=== PATIENT | female | born 1985 | race African-American/Black ===

== ENCOUNTER → 2018-03-06 | Day surgery (SDC) | payer OTHER ==
--- NOTE | 2018-02-26 12:38 | MH ---
cc: Sim Pemberton MD, Jesse S MD DATE OF ADMISSION: 03/06/2018 REASON FOR ADMISSION: Diagnostic cystoscopy. HISTORY OF PRESENT ILLNESS: The patient is a 32-year-old black female, 3, para 3, with a long history of bladder pain issues. She has had negative urine cultures, but does have some microscopic hematuria. She has used vaginal estrogen in the past with some relief and uses Macrodantin on a p.r.n. basis. She at this point wants to proceed with cystoscopy. PAST MEDICAL HISTORY: Negative for heart, lung, or liver disease; hypertension, diabetes or stroke. PAST SURGICAL HISTORY: Tubal ligation. OBSTETRICAL HISTORY: Three vaginal deliveries. GYNECOLOGICAL HISTORY: No STDs or abnormal Pap smears. Periods are once a month. MEDICATIONS: Vaginal estrogen cream every other night, nitrofurantoin p.r.n. ALLERGIES: NONE. FAMILY HISTORY: Noncontributory. SOCIAL HISTORY: Does not smoke, use alcohol or drugs. Has good social support. REVIEW OF SYSTEMS: As above. No chest pain, orthopnea or PND. No nausea, vomiting, fever or chills. No vaginal bleeding or discharge. PHYSICAL EXAMINATION: VITAL SIGNS: She is afebrile. Vital signs are stable. Blood pressure is 120/70, height 5 feet 3 inches, weight is 127, BMI is 22.5. GENERAL: The patient is alert and oriented, in no acute distress. No sign of cognitive dysfunction or depression. HEENT: Within normal limits. NECK: Supple. No JVD. CHEST: Clear. HEART: Regular rate and rhythm. ABDOMEN: Soft, nontender. No hepatosplenomegaly. No CVA tenderness. PELVIC: Exam will be detailed under anesthesia. EXTREMITIES: Normal. SKIN: No rashes. NEUROLOGIC: Nonfocal. No DVT signs. ASSESSMENT: The patient with bladder pain syndrome. PLAN: We have discussed options for management and treatment. At this point, we will proceed with cystoscopy and appropriate biopsies if need be. She is aware of the risks, benefits, and alternatives of the planned procedure including damage to surrounding organs, bleeding, infection, and possibility that pain may not be relieved. Anticipate outpatient procedure. We will use deep thrombosis prophylaxis with sequential compression device and antibiotic prophylaxis of Ancef 1 gram. MD JOSE Hendrickson/JESSICA , 12:20 PM , 12:37 PM
[~2018-03-06] VITALS: Ht 160 cm; Wt 58.5 kg
[~2018-03-06] MED LIST: ACETAMINOPHEN 1000 MG/100 ML 100 ML IV ONE; CHLORHEXIDINE GLUCONATE 2 % 1 PACK (2 CLOTHS) TOPICAL PRN; CYCL10TA PO; DEXAMETHASONE SOD PHOS 4 MG/ML VIAL IV ONE; DIFL150T PO; DO NOT ADM ANY ANTICOAGULANT DRUGS PRN; ESTR42.5V VAGINAL; KETOROLAC TROMETHAMINE 30 MG/ML (IVP) VIAL IV PUSH ONE; KETOROLAC TROMETHAMINE 30 MG/ML (IVP) VIAL IV PUSH PRN; LACTATED RINGER'S 1000 ML IV PRN; LIDOCAINE HCL 1% PF 5 ML SYRINGE OTHER ONE; MACR100C2 PO; METOPROLOL TARTRATE 25 MG TAB PO PRN; MIDAZOLAM HCL 2 MG/2 ML VIAL ONE; NITR50CA27 PO; ONDANSETRON HCL 4 MG/2 ML VIAL IV ONE; ONDANSETRON HCL 4 MG/2 ML VIAL IV PUSH PRN; ORTH0.35 PO; POVIDONE IODINE 5% (ANTISEPSIS KIT) 4 APPLICATIONS EACH NARE PRN; PROPOFOL 200 MG/20 ML AMP IV ONE; SODIUM CHLORID 0.9% 500 ML IV PRN; ceFAZolin 2 GM/DEX PREMIX 50 ML IV SCH; ePHEDrine/NS 25 MG/5 ML SYRINGE IV ONE; traMADol HCL 50 MG TAB PO PRN
--- NOTE | 2018-03-06 10:59 | MP ---
cc: Sim Pemberton MD DATE OF OPERATION: 03/06/2018 PREOPERATIVE DIAGNOSES: Interstitial cystitis, bladder pain, code N30.1. PROCEDURE PERFORMED: Cystoscopy with hydrodistention, code 30377. POSTOPERATIVE DIAGNOSES. Interstitial cystitis, bladder pain, code N30.1. SURGEON: Sim Pemberton MD. ANESTHESIA: Laryngeal mask. BLOOD LOSS: None. ANESTHETIC BLADDER CAPACITY: 500 mL. FINDINGS: External genitalia normal POP-Q score Aa is -2, Ap is -2, point C is -8, total vaginal length is 10 genital hiatus is 4, perineal body is 5. Uterus is anteverted and anteflexed. No adnexal mass. Cystoscopy shows a hyperemic trigone with enhanced vascularity, but no Hunner's ulcers or glomerulations. After distention and reinspection, no significant change. Ureteral orifice patent x 2. The dome of the bladder is unremarkable. Urethra is normal without any sign of diverticula. SPECIMENS: None. COMPLICATIONS: None. DISPOSITION: To recovery room stable. COUNTS: Needle and sponge counts correct. DRAINS: None. ANTIBIOTIC PROPHYLAXIS: Ancef 2 grams. DVT PROPHYLAXIS: Sequential compression devices. SUMMARY OF INDICATIONS FOR THE PROCEDURE: The patient with issues with bladder pain and dysuria with negative cultures. The patient had failed conservative therapy and opted for cystoscopy and hydrodistention. PROCEDURE: The patient was taken to the operating theater, identified, prepped and draped in a fashion appropriate for the planned procedure. She was in the dorsal lithotomy position with careful attention paid to placement of legs in stirrups to avoid undue stress to sensitive neurovascular structures. The cystoscopy was performed using a 17-Portuguese bridge and a 70-degree scope. Saline was used for distention medium at a pressure of 50 cm of water. The bladder was distended. Bladder capacity 500 mL. Reinspection of the bladder with the above findings, no significant ulcerations or glomerulations. The procedure was concluded. At this point, we will consider tier 3 or 4 standard treatment protocol for interstitial cystitis. Sim Pemberton MD CJS/DL , 10:30 AM , 10:57 AM
[2018-03-06 11:40] VITALS: BP 108/63; PULSE 74; RESP 20; TEMP 98; O2SAT 99
== END | disposition home or self-care (01) ==
LOC: HSDC 07:41
PROVIDERS: ATTEND Obstetrics & Gynecology Gynecology
DX: N30.11 Interstitial cystitis (chronic) with hematuria (principal)
CPT/HCPCS: 00910; 52260; J0131; J0690; J1100; J1885; J2250; J2405; J3010; J7120